=== PATIENT | male | born 1970 | race American Indian/Alaskan Native ===

== ENCOUNTER 2019-01-31 11:53 | Outpatient (CLI) | payer MEDICARE ==
--- NOTE | 2019-01-31 12:50 | XRay Report ---
LEFT HIP X-RAY, 2 VIEWS INDICATION: LEFT HIP PAIN. COMPARISON: None. IMPRESSION: Normal bone mineralization. There is normal articulation at the left hip. No evidence fo r fracture, dislocation, osteonecrosis or bone lesion. No significant DJD. There are mild heterotopi c calcifications lateral to the left iliac wing which may represent previous trauma or bone graft don or site. Please correlate with the patient's history. No acute injury is identified. Signer Name: Go Ha Jr, MD Signed: 01/31/2019 12:46 PM Workstation Name: [id number]
== END 2019-01-31 11:54 | disposition home or self-care (01) ==
LOC: XRAY 11:53
PROVIDERS: ATTEND Orthopaedic Surgery
DX: M25.552 Pain in left hip (principal)